=== PATIENT | female | born 1995 ===

== ENCOUNTER 2018-08-05 11:15 | Outpatient (CLI) | payer OTHER ==
[~2018-08-05] VITALS: Ht 162.6 cm; Wt 63.5 kg
== END 2018-08-05 11:30 | disposition home or self-care (01) ==
LOC: OFIC 805 11:15
DX: J34.3 Hypertrophy of nasal turbinates (principal); R09.81 Nasal congestion; J35.3 Hypertrophy of tonsils with hypertrophy of adenoids

== ENCOUNTER 2018-09-30 14:28 | Outpatient (CLI) | payer OTHER ==
[~2018-09-30] VITALS: Ht 152.4 cm; Wt 63.5 kg
== END 2018-09-30 14:40 | disposition home or self-care (01) ==
LOC: OFIC 805 14:28
DX: J34.3 Hypertrophy of nasal turbinates (principal); R09.81 Nasal congestion; J30.89 Other allergic rhinitis

== ENCOUNTER 2019-07-29 09:15 | Outpatient (CLI) | payer OTHER | END 2019-07-29 13:30 | disposition home or self-care (01) | LOC: OFIC 805 09:15 | DX: J35.03 Chronic tonsillitis and adenoiditis (principal); J31.0 Chronic rhinitis; J03.81 Acute recurrent tonsillitis due to other specified organisms ==

== ENCOUNTER 2020-02-11 11:14 | Outpatient (CLI) | payer OTHER | END 2020-02-11 12:20 | disposition home or self-care (01) | LOC: OFIC 805 11:14 | PROVIDERS: ATTEND Otolaryngology | DX: J34.3 Hypertrophy of nasal turbinates (principal); J03.81 Acute recurrent tonsillitis due to other specified organisms ==

== ENCOUNTER 2020-12-27 06:38 | Day surgery (SDC) | payer OTHER ==
[~2020-12-27 06:38] MED LIST: AZELASTINE137 MCG/0. IH; EMGALITY P120 MG/1 M SQ; PROZAC; SINGULAIR10 MG PO; TORADOL60 MG IM; VISTARIL50 MG PO
== END 2020-12-27 17:00 | disposition critical access hospital, planned readmission (94) ==
LOC: CIR.AMB 06:38
PROVIDERS: ATTEND Otolaryngology
DX: J35.1 Hypertrophy of tonsils (principal); Z20.822 Contact with and (suspected) exposure to COVID-19